=== PATIENT | female | born 1955 | race Hispanic/Latino ===

== ENCOUNTER 2016-11-28 14:31 | Emergency (ER) | payer BC ==
[2016-11-28 14:35] VITALS: BMI 29.7
[2016-11-28 14:37] VITALS: TEMP 98.1
[2016-11-28] MEDS ORDERED: Labetalol 5mg/ml (4ml) ONE (14:44)
[2016-11-28] MEDS ORDERED: Labetalol 5 mg/ml Inj 20ML IVP STA (14:44)
--- NOTE | 2016-11-28 14:52 | ED PDOC ---
HPI: Hypertension/Hypotension Time Seen by Provider: 11/28/16 14:43 Chief Complaint (Nursing): High Blood Pressure Chief Complaint (Provider): sent from clinic for elevated BP, headache, arm pain History Per: Patient History/Exam Limitations: no limitations Onset/Duration Of Symptoms: Days (3), Gradual Current Symptoms Are (Timing): Intermittent Episodes Associated Symptoms: Headache. denies: Chest Pain, Dyspnea, Dizziness, Blurred Vision, Focal Weakness Quality Of Symptoms: No Rhythm Irregularity Severity: Moderate Exacerbating Factor(s): Pos: None Additional History Per: Prior Records (Dr [facility] clinic) Additional Complaint(s): 61yo female sent from [facility] for markedly elevated BP and symptoms of headache and L arm "tightness". States was told several times over last year her BP was elevated at urgent care centers, never followed up. Last week went to for URI, told to see PMD for BP 160/110. Pt also smoker w fam hx of HTN. Denies ever being Rx medication, hasnt seen PMD in quite some time before. Past Medical History Reviewed: Historical Data, Nursing Documentation, Vital Signs Vital Signs: Last Vital Signs Temp 98.1 F 11/28/16 14:36 Pulse 105 H 11/28/16 14:36 Resp 20 11/28/16 14:36 BP 167/109 H 11/28/16 14:36 Pulse Ox 100 11/28/16 14:36 - Medical History PMH: HTN (? non diagnosed prior) - Surgical History Surgical History: No Surg Hx - Family History Family History: States: Hypertension - Living Arrangements Living Arrangements: With Family - Social History Current smoker - smoking cessation education provided: Yes - Home Medications Home Medications: Ambulatory Orders Medication Instructions Recorded hydroCHLOROthiazide [Hydrodiuril] 25 mg PO DAILY #14 tab 11/28/16 - Allergies Allergies/Adverse Reactions: Allergies Allergy/AdvReac Type Severity Reaction Status Date / Time Penicillins Allergy RASH Verified 11/28/16 14:37 Review of Systems ROS Statement: Except As Marked, All Systems Reviewed And Found Negative Constitutional: Negative for: Fever, Chills Cardiovascular: Negative for: Chest Pain, Palpitations Respiratory: Negative for: Cough, Shortness of Breath Gastrointestinal: Negative for: Nausea, Vomiting Genitourinary Female: Negative for: Dysuria, Frequency Musculoskeletal: Positive for: Arm Pain. Negative for: Neck Pain, Shoulder Pain Skin: Negative for: Rash, Lesions, Jaundice Neurological: Positive for: Headache. Negative for: Weakness, Numbness Psych: Negative for: Anxiety Physical Exam - Reviewed Nursing Documentation Reviewed: Yes Vital Signs Reviewed: Yes - Physical Exam Appears: Positive for: Well, Non-toxic, No Acute Distress Head Exam: Positive for: ATRAUMATIC, NORMAL INSPECTION, NORMOCEPHALIC Skin: Positive for: Normal Color, Warm, DRY Eye Exam: Positive for: EOMI, Normal appearance, PERRL ENT: Positive for: Normal ENT Inspection Neck: Positive for: Normal, Painless ROM Cardiovascular/Chest: Positive for: Regular Rate, Rhythm Respiratory: Positive for: CNT, Normal Breath Sounds Gastrointestinal/Abdominal: Positive for: Normal Exam, Bowel Sounds, Soft. Negative for: Tenderness, Guarding Back: Positive for: Normal Inspection Extremity: Positive for: Normal ROM Neurologic/Psych: Positive for: Alert, Oriented. Negative for: Motor/Sensory Deficits - Laboratory Results Result Diagrams: 11/28/16 15:00 11/28/16 15:00 - ECG O2 Sat by Pulse Oximetry: 100 Medical Decision Making Medical Decision Making: Workup initiated for hypertensive urgency. Labetolol 10mg IV ordered. CT brain r/o ICH, ACS or end organ damage. CT brain read by radiologist as normal brain Labs clinically unremarkable trop neg BP improved in ED approx 20%. Explained need to normalize BP over next 10 days. Refer back to clinic next week for BP check. Start HCTZ 25mg. Smoking cessation discussed at length/. FP service made aware. Disposition - Clinical Impression Clinical Impression: Hypertension - Patient ED Disposition Is Patient to be Admitted: No Counseled Patient/Family Regarding: Studies Performed, Diagnosis, Need For Followup, Rx Given - Disposition Referrals: [facility] [Outside] Disposition: Routine/Home Disposition Time: 17:02 Condition: STABLE Additional Instructions: See clinic next week for further testing and Blood pressure check. Avoid extra salt in diet. Stop smoking! Take blood pressure medication once daily in morning. Prescriptions: hydroCHLOROthiazide [Hydrodiuril] 25 mg PO DAILY #14 tab Instructions: Hypertensive Crisis (ED), Chronic Hypertension (ED)
[2016-11-28 15:28] LABS: BASO # 0.1 K/uL (0.0-0.2); BASO % 0.9 % (0.0-2.0); EOS # 0.2 K/uL (0.0-0.7); EOS % 1.8 % (0.0-4.0); HEMATOCRIT 39.8 % (34.0-47.0); LYMPH # 2.4 K/uL (1.0-4.3); LYMPH % 21.8 % (20.0-40.0); MEAN CELL VOLUME 91.5 fl (81.0-99.0); MEAN CORPUSCULAR HEMOGLOBIN 30.6 pg (27.0-31.0); MEAN CORPUSCULAR HGB CONC 33.5 g/dL (33.0-37.0); MEAN PLATELET VOLUME 8.4 fl (7.2-11.7); MONO # 1.1 K/uL (0.0-0.8); MONO % 9.7 % (0.0-10.0); NEUT # 7.2 K/uL (1.8-7.0); NEUT % 65.8 % (50.0-75.0); RED CELL DISTRIBUTION WIDTH 14.3 % (11.5-14.5); WHITE BLOOD COUNT 10.9 K/uL (4.8-10.8)
[2016-11-28 16:08] VITALS: BP 147/89; PULSE 71; RESP 17
[2016-11-28 16:16] LABS: ALB/GLOB RATIO 1.1 (1.0-2.1); ALKALINE PHOSPHATASE 108 U/L (38-126); ALT/SGPT 20 U/L (9-52); AST/SGOT 25 U/L (14-36); BILIRUBIN,TOTAL 0.5 mg/dl (0.2-1.3); BLOOD UREA NITROGEN 16 mg/dl (7-17); CALCIUM 9.8 mg/dL (8.4-10.2); CARBON DIOXIDE 25 mmol/L (22-30); CHLORIDE 107 mmol/L (98-107); GFR AFRICAN-AMERICAN > 60; GLUCOSE,RANDOM 110 mg/dL (65-105); POTASSIUM 4.1 MMOL/L (3.6-5.0); SODIUM 144 mmol/l (132-148); TOTAL PROTEIN 7.9 G/DL (6.3-8.2)
--- NOTE | 2016-11-28 16:47 | CT ---
PROCEDURE: CT HEAD WITHOUT CONTRAST. HISTORY: headache hypertension COMPARISON: None available. TECHNIQUE: Axial computed tomography images were obtained through the head/brain without intravenous contrast. Radiation dose: Total exam DLP = 845 mGy-cm. This CT exam was performed using one or more of the following dose reduction techniques: Automated exposure control, adjustment of the mA and/or kV according to patient size, and/or use of iterative reconstruction technique. FINDINGS: HEMORRHAGE: No intracranial hemorrhage. BRAIN: No mass effect or edema. No atrophy or chronic microvascular ischemic changes. VENTRICLES: Unremarkable. No hydrocephalus. CALVARIUM: Unremarkable. PARANASAL SINUSES: Unremarkable as visualized. No significant inflammatory changes. MASTOID AIR CELLS: Unremarkable as visualized. No inflammatory changes. OTHER FINDINGS: None. IMPRESSION: Normal CT of the Head.
[2016-11-28 17:03] VITALS: O2SAT 100
--- NOTE | 2016-11-28 21:18 | CARD ---
APPROVED REPORT EKG Measurement Heart [id number] <Conclusion> Normal sinus rhythm Normal ECG
== END 2016-11-28 17:27 | disposition home or self-care (01) ==
LOC: H.ER 14:31
DX: I10 Essential (primary) hypertension (principal); R51 Headache; F17.200 Nicotine dependence, unspecified, uncomplicated

== ENCOUNTER 2016-12-21 05:59 | Emergency (ER) | payer BC ==
[2016-12-21 06:00] VITALS: BMI 29.7
[2016-12-21 06:14] VITALS: RESP 18; TEMP 98.3; O2SAT 98
--- NOTE | 2016-12-21 06:54 | ED PDOC ---
HPI: Headache Time Seen by Provider: 12/21/16 06:10 Chief Complaint (Nursing): Headache Chief Complaint (Provider): headache, high bp History Per: Patient History/Exam Limitations: no limitations Onset/Duration Of Symptoms: Hrs (12) Current Symptoms Are (Timing): Better Additional Complaint(s): 61yo female with PMHx including recently diagnosed HTN (takes Hydrochlorothiazide daily as prescribed) presents to the ED with c/o headache and high bp x [address] Shelia Ohara is patient's PCP at the clinic. Patient reports mild headache last night prompting her to check her bp serially and noticed systolics ranging from 102 to 110. Patient went to sleep then rechecked bp this morning and found bp to be elevated again. Subsequently she took her Hydrochlorothiazide and since bp has improved. Patient became concerned so she came to ED for eval. Upon provider asking if patient has been taking other meds , patient admits to taking OTC cough medicine (coricidin) for URI symptoms. Denies chest pain, n/v/d, diaphoresis, SOB. Past Medical History Reviewed: Historical Data, Nursing Documentation, Vital Signs Vital Signs: Last Vital Signs Temp 98.3 F 12/21/16 06:11 Pulse 98 H 12/21/16 06:11 Resp 18 12/21/16 06:11 BP 150/94 H 12/21/16 06:11 Pulse Ox 98 12/21/16 06:11 - Medical History PMH: HTN (recently diagnosed ) - Surgical History Surgical History: No Surg Hx - Family History Family History: States: Hypertension - Social History Current smoker - smoking cessation education provided: No Alcohol: None Drugs: Denies - Immunization History Hx Tetanus Toxoid Vaccination: No Hx Influenza Vaccination: No Hx Pneumococcal Vaccination: No - Home Medications Home Medications: Ambulatory Orders Medication Instructions Recorded hydroCHLOROthiazide [Hydrodiuril] 25 mg PO DAILY #14 tab 11/28/16 - Allergies Allergies/Adverse Reactions: Allergies Allergy/AdvReac Type Severity Reaction Status Date / Time Penicillins Allergy RASH Verified 11/28/16 14:37 Review of Systems ROS Statement: Except As Marked, All Systems Reviewed And Found Negative Constitutional: Positive for: Other (no diaphoresis ) Cardiovascular: Positive for: Other (high bp ). Negative for: Chest Pain Respiratory: Positive for: Cough. Negative for: Shortness of Breath Gastrointestinal: Negative for: Nausea, Vomiting, Diarrhea Neurological: Positive for: Headache Physical Exam - Reviewed Nursing Documentation Reviewed: Yes Vital Signs Reviewed: Yes - Physical Exam Appears: Positive for: Well, No Acute Distress Head Exam: Positive for: ATRAUMATIC, NORMAL INSPECTION, NORMOCEPHALIC Skin: Positive for: Normal Color, Warm, Dry Eye Exam: Positive for: Normal appearance, EOMI, PERRL ENT: Positive for: Normal ENT Inspection Neck: Positive for: Normal, Painless ROM, Supple Cardiovascular/Chest: Positive for: Regular Rate, Rhythm. Negative for: Murmur , Tachycardia Respiratory: Positive for: Normal Breath Sounds. Negative for: Wheezing, Respiratory Distress Gastrointestinal/Abdominal: Positive for: Normal Exam, Bowel Sounds, Soft. Negative for: Tenderness Back: Positive for: Normal Inspection. Negative for: L CVA Tenderness, R CVA Tenderness Extremity: Positive for: Normal ROM. Negative for: Deformity, Swelling Neurologic/Psych: Positive for: Alert, Oriented - ECG O2 Sat by Pulse Oximetry: 98 Pulse Ox Interpretation: Normal (RA) Medical Decision Making Medical Decision Makin: Impression: 61yo female w/ HTN Patient counseled on need to abstain from OTC cough and cold medicine and any pseudoephedrine containing compounds. Patient verbalized understanding and is stable for d/c. Dx: HTN stable Scribe Attestation: Documented by Rebeca Alexander acting as a scribe for Franky Gonzalez MD. Provider Scribe Attestation: All medical record entries made by the Scribe were at my direction and personally dictated by me. I have reviewed the chart and agree that the record accurately reflects my personal performance of the history, physical exam, medical decision making, and the department course for this patient. I have also personally directed, reviewed, and agree with the discharge instructions and disposition. Disposition - Clinical Impression Clinical Impression: Hypertension - Patient ED Disposition Is Patient to be Admitted: No - Disposition Disposition: Routine/Home Disposition Time: 06:45 Condition: STABLE Instructions: Hypertension (ED)
[2016-12-21 07:05] VITALS: BP 150/90; PULSE 86
--- NOTE | 2016-12-21 08:51 | CARD ---
APPROVED REPORT EKG Measurement Heart [id number] <Conclusion> Normal sinus rhythm Normal ECG
== END 2016-12-21 07:06 | disposition home or self-care (01) ==
LOC: H.ER 05:59
DX: I10 Essential (primary) hypertension (principal); Z88.0 Allergy status to penicillin